=== PATIENT | female | born 1950 | race Caucasian/White ===

== ENCOUNTER → 2022-04-18 | Outpatient (REF) | payer MEDICARE ==
[2022-04-18 17:37] LABS: HEPATITIS B SURFACE ANTIBODY POSITIVE (POSITIVE)
[2022-04-18 17:49] LABS: HEPATITIS B SURFACE ANTIGEN NEGATIVE (NEGATIVE)
[2022-04-18 18:11] LABS: HEPATITIS C VIRUS ABY INDEX 0.1 INDEX (<0.8)
== END ==
LOC: M SFHCRHEU 14:53
PROVIDERS: ATTEND Internal Medicine
DX: R76.8 Other specified abnormal immunological findings in serum (principal)

== ENCOUNTER → 2023-07-15 | Outpatient (REF) | payer MEDICARE ==
[2023-07-17 23:08] LABS: ANA (HEP2) Negative (.); SSA SJOGRENS A <0.2 AI (0.0-0.9); SSB SJOGRENS B <0.2 AI (0.0-0.9)
== END ==
LOC: M SFHCRHEU 14:10
PROVIDERS: ATTEND Internal Medicine
DX: H04.123 Dry eye syndrome of bilateral lacrimal glands (principal)